=== PATIENT | male | born 1990 | race Caucasian/White ===

== ENCOUNTER 2020-11-12 14:16 | Observation (INO) | payer OTHER ==
[2020-11-12] MEDS ORDERED: ONDANSETRON 4 MG/2 ML VIAL IVP STA (14:43)
[2020-11-12] MEDS ORDERED: MORPHINE SULFATE 4 MG/ML SYRINGE IV STA (14:43)
[2020-11-12] MEDS ORDERED: SODIUM CHLORIDE 0.9% 1,000 ML IV STA (14:43)
[2020-11-12 15:15] LABS: Basophils # (A) 0.1 k/uL (0-0.2); Basophils % (A) 1 %; Eosinophils # (A) 0.2 k/uL (0-0.7); Eosinophils % (A) 2 %; HCT 43.7 % (39.0-53.0); HGB 14.9 gm/dL (13.0-17.5); Lymphocytes # (A) 1.8 k/uL (1.0-4.8); Lymphocytes % (A) 23 %; MCH 28.2 pg (25.0-35.0); MCHC 34.1 g/dL (31.0-37.0); MCV 82.8 fL (80.0-100.0); Mean Platelet Volume 6.8; Monocytes # (A) 0.5 k/uL (0-1.0); Monocytes % (A) 6 %; Neutrophils # (A) 5.1 k/uL (1.3-7.7); Neutrophils % (A) 67 %; Platelet Count 215 k/uL (150-450); RBC 5.28 m/uL (4.30-5.90); RDW 12.9 % (11.5-15.5); WBC 7.6 k/uL (3.8-10.6)
[2020-11-12 15:17] LABS: Appearance,Urine Clear (Clear); Bilirubin,Urine Negative (Negative); Blood,Urine Negative (Negative); Color,Urine Yellow; Glucose,Urine (UA) Negative (Negative); Ketones,Urine Negative (Negative); Leukocyte Esterase,Urine Negative (Negative); Nitrite,Urine Negative (Negative); PH, Urine 5.5 (5.0-8.0); Protein,Urine Negative (Negative); Specific Gravity,Urine 1.028 (1.001-1.035); Urobilinogen,Urine <2.0 mg/dL (<2.0)
[2020-11-12 15:49] LABS: ALT 24 U/L (4-49); AST 24 U/L (17-59); African American GFR (CKD) >90 (>60 ml/min/1.73 sqM); Albumin 4.6 g/dL (3.5-5.0); Alkaline Phosphatase 56 U/L (38-126); Amylase 53 U/L (30-110); Anion Gap 7 mmol/L; Blood Urea Nitrogen 19 mg/dL (9-20); Calcium 9.1 mg/dL (8.4-10.2); Carbon Dioxide 29 mmol/L (22-30); Chloride 103 mmol/L (98-107); Glucose 103 mg/dL (74-99); Lipase 92 U/L (23-300); Non-African American GFR(CKD) 86 (>60 ml/min/1.73 sqM); Potassium 4.3 mmol/L (3.5-5.1); Sodium 139 mmol/L (137-145); Total Bilirubin 0.5 mg/dL (0.2-1.3); Total Protein 7.2 g/dL (6.3-8.2)
--- NOTE | 2020-11-12 15:54 | ED ---
Abdominal Pain HPI - General Chief Complaint: Abdominal Pain Stated Complaint: R side pain Time Seen by Provider: 11/12/20 14:24 Source: patient, RN notes reviewed Mode of arrival: ambulatory Limitations: no limitations - History of Present Illness Initial Comments: Patient is a 30-year-old male that presents to emergency department complaining of right lower quadrant pain. He notes that it started last evening thought that it was an abdominal pain and abdominal cramping or pain and will go away on its own. He noted that it has not been relieved or let up since yesterday. So decided come emergency room to get evaluated. He notes he does still have his appendix. He noted that he is nauseous but has not vomited. He was in no apparent distress or pain while sitting up in bed during the exam interview. He denied any chest pain shortness of breath headache nausea diarrhea constipation fever fatigue chills hematochezia melena - Related Data Allergies Allergy/AdvReac Type Severity Reaction Status Date / Time eye drops Allergy Unknown Uncoded 11/12/20 14:22 Review of Systems ROS Statement: Those systems with pertinent positive or pertinent negative responses have been documented in the HPI. ROS Other: All systems not noted in ROS Statement are negative. Past Medical History Past Medical History: No Reported History History of Any Multi-Drug Resistant Organisms: None Reported Past Surgical History: Tonsillectomy Past Psychological History: Anxiety Smoking Status: Never smoker Past Alcohol Use History: Rare Past Drug Use History: None Reported General Exam Limitations: no limitations General appearance: alert, in no apparent distress Head exam: Present: atraumatic, normocephalic, normal inspection Eye exam: Present: normal appearance, PERRL, EOMI. Absent: scleral icterus, conjunctival injection, periorbital swelling Neck exam: Present: normal inspection Respiratory exam: Present: normal lung sounds bilaterally. Absent: respiratory distress, wheezes, rales, rhonchi, stridor Cardiovascular Exam: Present: regular rate, normal rhythm, normal heart sounds. Absent: systolic murmur, diastolic murmur, rubs, gallop, clicks GI/Abdominal exam: Present: soft, normal bowel sounds. Absent: distended, tenderness, guarding, rebound, rigid Expanded GI/Abdominal exam: Present: Rovsing's sign, tenderness at McBurney's Point Extremities exam: Present: normal inspection, full ROM, normal capillary refill. Absent: tenderness, pedal edema, joint swelling, calf tenderness Neurological exam: Present: alert, oriented X3 Psychiatric exam: Present: normal affect, normal mood Skin exam: Present: warm, dry, intact, normal color. Absent: rash Course Vital Signs 11/12/20 11/12/20 14:19 16:16 Temperature 98.2 F Pulse Rate 60 68 Respiratory 18 17 Rate Blood Pressure 120/69 116/68 O2 Sat by Pulse 98 97 Oximetry Medical Decision Making - Medical Decision Making 30-year-old male complaining of right lower quadrant pain starting last night. Labs, 4 mg morphine, 4 mg Zofran, CT of the abdomen and pelvis, 1 L normal saline ordered. Labs unremarkable. CT shows early appendicitis. Case discussed with Dr. Crane, patient will be admitted inpatient for surgical consult. Kendra Stacy consulted and will accept the admit for Dr. Taylor with surgery on consult. - Lab Data Result diagrams: 11/12/20 15:00 11/12/20 15:00 Lab Results 11/12/20 11/12/20 11/12/20 Range/Units 15:00 15:00 15:00 WBC 7.6 (3.8-10.6) k/uL RBC 5.28 (4.30-5.90) m/uL Hgb 14.9 (13.0-17.5) gm/dL Hct 43.7 (39.0-53.0) % MCV 82.8 (80.0-100.0) fL MCH 28.2 (25.0-35.0) pg MCHC 34.1 (31.0-37.0) g/dL RDW 12.9 (11.5-15.5) % Plt Count 215 (150-450) k/uL MPV 6.8 Neutrophils % 67 % Lymphocytes % 23 % Monocytes % 6 % Eosinophils % 2 % Basophils % 1 % Neutrophils # 5.1 (1.3-7.7) k/uL Lymphocytes # 1.8 (1.0-4.8) k/uL Monocytes # 0.5 (0-1.0) k/uL Eosinophils # 0.2 (0-0.7) k/uL Basophils # 0.1 (0-0.2) k/uL Sodium 139 (137-145) mmol/L Potassium 4.3 (3.5-5.1) mmol/L Chloride 103 (98-107) mmol/L Carbon Dioxide 29 (22-30) mmol/L Anion Gap 7 mmol/L BUN 19 (9-20) mg/dL Creatinine 1.14 (0.66-1.25) mg/dL Est GFR (CKD-EPI)AfAm >90 (>60 ml/min/1.73 sqM) Est GFR (CKD-EPI)NonAf 86 (>60 ml/min/1.73 sqM) Glucose 103 H (74-99) mg/dL Calcium 9.1 (8.4-10.2) mg/dL Total Bilirubin 0.5 (0.2-1.3) mg/dL AST 24 (17-59) U/L ALT 24 (4-49) U/L Alkaline Phosphatase 56 (38-126) U/L Total Protein 7.2 (6.3-8.2) g/dL Albumin 4.6 (3.5-5.0) g/dL Amylase 53 (30-110) U/L Lipase 92 (23-300) U/L Urine Color Yellow Urine Appearance Clear (Clear) Urine pH 5.5 (5.0-8.0) Ur Specific [place] 1.028 (1.001-1.035) Urine Protein Negative (Negative) Urine Glucose (UA) Negative (Negative) Urine Ketones Negative (Negative) Urine Blood Negative (Negative) Urine Nitrite Negative (Negative) Urine Bilirubin Negative (Negative) Urine Urobilinogen <2.0 (<2.0) mg/dL Ur Leukocyte Esterase Negative (Negative) - Radiology Data Radiology results: image reviewed CT of the abdomen and pelvis. Borderline prominence of the appendix measuring up to 6 mm. No significant inflammatory changes or fluid collection. Findings are clinical for early appendicitis. Disposition Clinical Impression: Appendicitis Disposition: ADMITTED IP TO THIS [facility] Condition: Stable Is patient prescribed a controlled substance at d/c from ED?: No Referrals: None,Stated [Primary Care Provider] - 1-2 days Time of Disposition: 17:26
--- NOTE | 2020-11-12 16:50 | CT ---
EXAMINATION TYPE: CT abdomen pelvis w con DATE OF EXAM: 11/12/2020 COMPARISON: None available. HISTORY: RLQ pain CT DLP: 1679.1 mGycm Automated exposure control for dose reduction was used. TECHNIQUE: Helical acquisition of images was performed from the lung bases through the pelvis. CONTRAST: Performed without Oral Contrast and with IV Contrast, patient injected with 100 mL of Isovue 300. FINDINGS: LUNG BASES: No significant abnormality is appreciated. LIVER/GB: No acute abnormality is appreciated. Hepatic steatosis. PANCREAS: No significant abnormality is seen. SPLEEN: No significant abnormality is seen. ADRENALS: No significant abnormality is seen. KIDNEYS: No significant abnormality is seen. FREE AIR: No free air is visualized. RETROPERITONEAL ADENOPATHY: None visualized REPRODUCTIVE ORGANS: No significant abnormality is seen URINARY BLADDER: No significant abnormality is seen. PELVIC ADENOPATHY: None visualized. OSSEOUS STRUCTURES: No significant abnormality is seen. BOWEL: Appendix measures up to 6 mm. No bowel obstruction, free air or fluid. OTHER: None IMPRESSION: BORDERLINE PROMINENCE OF THE APPENDIX MEASURING UP TO 6 MM. NO SIGNIFICANT INFLAMMATORY CHANGES OR FL UID COLLECTION. FINDINGS ARE EQUIVOCAL FOR EARLY APPENDICITIS. Incidental findings as above.
[2020-11-12] MEDS ORDERED: PIPERACILLIN-TAZOBACTAM 3.375 GM in SODIUM CHLORIDE 0.9% 100 ML IVPB STA (17:14)
[2020-11-12] MEDS ORDERED: ONDANSETRON 4 MG/2 ML VIAL IVP PRN (17:23)
[2020-11-12] MEDS ORDERED: MORPHINE SULFATE 4 MG/ML SYRINGE IV PRN (17:23)
[2020-11-12] MEDS ORDERED: NALOXONE 0.4 MG/ML 1 ML VIAL IV PRN (17:23)
[2020-11-12] MEDS: SODIUM CHLORIDE 0.9% 1,000 ML IV SCH (17:51)
[2020-11-12] MEDS ORDERED: TEMAZEPAM 15 MG CAP PO PRN (20:09)
[2020-11-12] MEDS ORDERED: ALPRAZolam 0.25 MG TAB PO PRN (20:09)
[2020-11-12] MEDS: ACETAMINOPHEN TAB 325 MG TAB PO SCH ×2 (20:26→21:33)
[2020-11-12] MEDS: HEPARIN SODIUM,PORCINE/PF 5,000 UNIT/0.5 ML SYRINGE SQ SCH (21:33)
[2020-11-12] MEDS: PANTOPRAZOLE 40 MG/10 ML VIAL IVP SCH (21:33)
--- NOTE | 2020-11-12 22:16 | HP ---
HISTORY AND PHYSICAL DATE OF SERVICE: 11/12/2020 CHIEF COMPLAINT: Abdominal pain. HISTORY OF PRESENT ILLNESS: This 30-year-old gentleman with a past medical history of no significant medical issues except tonsillectomy and anxiety, being followed by no primary physician in the outpatient setting is complaining of abdominal pain which is felt mostly on the right side of the abdomen, lower part for the past several hours and because of increasing pain, patient also had some cramping, the patient came to [facility] and was admitted for further evaluation and treatment. There is no history of any fevers, rigors. No headache, loss of consciousness, seizures. White count is normal. The CT scan of the abdomen was done in the ER which showed borderline prominence of the appendix measuring up to 6 mm and findings ( ) for early appendicitis. Patient admitted for further evaluation and treatment. Surgery was consulted. PAST MEDICAL HISTORY: History of tonsillectomy, history of anxiety. MEDICATIONS ARE: Zoloft 150 mg daily. ALLERGIES: Eye drops. FAMILY HISTORY: No history of heart disease or strokes. SOCIAL HISTORY: No history of smoking, no alcohol intake. REVIEW OF SYSTEMS: ENT No history of diminished hearing or vision. CARDIOVASCULAR No angina or palpitations. RESPIRATORY No cough, no hemoptysis. GI As mentioned earlier. No dysuria or hematuria. NERVOUS No numbness or weakness. ALLERGY/IMMUNOLOGY No asthma or hayfever. MUSCULOSKELETAL As mentioned earlier. HEMATOLOGY/ONCOLOGY Negative. ENDOCRINE No history of diabetes or hypothyroidism. CONSTITUTIONAL As mentioned earlier. DERMATOLOGY Negative. RHEUMATOLOGY Negative, PSYCHIATRY As mentioned earlier. PHYSICAL EXAMINATION: Alert and oriented x3. Pulse 58, blood pressure 116/67, respiration 18, temperature 97.7, pulse ox 94% on room air. HEENT: Conjunctivae normal. Oral mucosa moist. NECK: No jugular venous distention. No lymph node enlargement. CARDIOVASCULAR: S1, S2, muffled. No S3, no S4, RESPIRATORY: Diminished breath sounds at the bases. Bilateral scattered rhonchi and crackles. ABDOMEN: Soft. Mild diffuse tenderness in the right lower quadrant. No guarding, no rigidity. No mass palpable. No ascites. LEGS: No edema, no swelling. NERVOUS SYSTEM: Higher functions mentioned earlier. Moves all four limbs. No focal motor or sensory deficits. LYMPHATICS: No lymph node in neck or axilla. SKIN: No rash. JOINTS: No active deforming arthropathy. LABS: Noted. Glucose 103. ASSESSMENT: 1. Right lower quadrant abdominal pain, possible acute appendicitis. 2. Increased random blood sugar. 3. History of tonsillectomy. 4. History of anxiety. 5. Bradycardia. 6. FULL CODE. RECOMMENDATIONS: In this 30-year-old gentleman who presented with multiple medical issues, at this time I recommend continue the current management, symptomatic treatment. Will obtain a surgical evaluation. Broad-spectrum IV antibiotics. Otherwise, closely monitor. The COVID-19 is negative. Also recommend the patient follow up with primary physician closely after discharge. DVT prophylaxis. Proton pump inhibitors. Discussed with the patient's family who understands. MMODL / IJN: [id number] /
[2020-11-13] MEDS: ACETAMINOPHEN TAB 325 MG TAB PO SCH ×5 (01:52→17:51)
[2020-11-13] MEDS: PIPERACILLIN-TAZOBACTAM 3.375 GM in SODIUM CHLORIDE 0.9% 100 ML IVPB SCH ×3 (01:52→17:33)
[2020-11-13] MEDS: SODIUM CHLORIDE 0.9% 1,000 ML IV SCH (01:52)
[2020-11-13] MEDS: PANTOPRAZOLE 40 MG/10 ML VIAL IVP SCH (07:46)
[2020-11-13] MEDS: HEPARIN SODIUM,PORCINE/PF 5,000 UNIT/0.5 ML SYRINGE SQ SCH ×2 (07:46→15:38)
[2020-11-13] MEDS ORDERED: SERTRALINE 100 MG TAB PO SCH (09:00)
[2020-11-13 09:08] LABS: Basophils % (A) 1 %; Eosinophils # (A) 0.1 k/uL (0-0.7); Eosinophils % (A) 1 %; HCT 41.8 % (39.0-53.0); HGB 14.4 gm/dL (13.0-17.5); Lymphocytes # (A) 1.6 k/uL (1.0-4.8); Lymphocytes % (A) 27 %; MCH 28.9 pg (25.0-35.0); MCHC 34.5 g/dL (31.0-37.0); MCV 83.5 fL (80.0-100.0); Monocytes # (A) 0.4 k/uL (0-1.0); Monocytes % (A) 6 %; Neutrophils # (A) 3.8 k/uL (1.3-7.7); Neutrophils % (A) 64 %; Platelet Count 220 k/uL (150-450); WBC 5.9 k/uL (3.8-10.6)
--- NOTE | 2020-11-13 12:21 | P.GSCN ---
History of Present Illness Consult date: 11/13/20 History of present illness: CHIEF COMPLAINT: Right lower quadrant abdominal pain for 2 days HISTORY OF PRESENT ILLNESS: The patient is a previously healthy 30-year-old male who presents with 2 day history of right lower quadrant abdominal pain that is crampy dull ache in nature. No reports of prior abdominal pain. He states the intensity of the pain is moderate and not improved with antibiotics or pain medications. He presented with CT abdomen and pelvis consistent with dilated appendix suspicious for appendicitis hence admission. PAST MEDICAL HISTORY: See list and reviewed PAST SURGICAL HISTORY: See list and reviewed CURRENT MEDICATIONS: See list and reviewed ALLERGIES: See list and reviewed SOCIAL HISTORY: See list and reviewed FAMILY HISTORY: See list and reviewed REVIEW OF ORGAN SYSTEMS: CONSTITUTIONAL: Present fever, no chills. Denies recent weight loss. HEENT: Denies any trouble with vision, hearing or nosebleeds. No difficulty swallowing. LYMPHATIC: The patient denies any lumps and bumps around the neck. ENDOCRINE: Denies any thyroid disorders. Denies any blood sugar glucose intolerance. RESPIRATORY: Denies shortness of breath including chronic cough. CARDIOVASCULAR: Denies history of chest pain with exertion. GASTROINTESTINAL: Denies regurgitation of bile at night as well as intermittent nausea. No blood in stools. GENITOURINARY: Denies any blood in urine or increased urinary frequency. MUSCULOSKELETAL: Denies current joint arthritis. NEUROLOGIC: Denies any numbness or tingling along the distal extremities. No seizure disorders or headaches. PSYCHIATRIC: Denies any depression or suicidal ideation. Has anxiety. HEMATOLOGIC: Denies any abnormal bleeding or bruising. PHYSICAL EXAMINATION: GENERAL: Well-developed male in no acute distress. Pleasant. HEENT: No sclera icterus. Extraocular movements grossly intact. Moist buccal mucosa. Head is atraumatic, normocephalic. Hears conversational speech. No nasal drainage. NECK: Supple without lymphadenopathy. No JV distention. CHEST: Non-labored respirations and equal bilateral excursions. CARDIOVASCULAR: Regular rate and rhythm. Palpable 2+ radial pulses. ABDOMEN: Soft, tender at the right lower quadrant without guarding. MUSCULOSKELETAL: No clubbing, cyanosis or edema. NEUROLOGIC: No focal or lateralizing signs. PSYCH: Appropriate affect. Alert and oriented to person, place and time. SKIN: Well perfused. Good skin turgor. LABS: Reviewed. White blood cell normal under 8000. STUDIES: CT of the abdomen and pelvis reviewed with appendix identified. Minimal inflammatory changes. This is my independent interpretation. RADIOLOGY: CT of the abdomen pelvis report consistent with early appendicitis. ASSESSMENT: 1. Appendicitis PLAN: 1. I have discussed benefits and risks of appendectomy. 2. Bilateral SCDs. 3. Continue IV antibiotics Thank you very much for allowing me to participate in the care of your patient. Past Medical History Past Medical History: No Reported History History of Any Multi-Drug Resistant Organisms: None Reported Past Surgical History: Tonsillectomy Past Anesthesia/Blood Transfusion Reactions: No Reported Reaction Past Psychological History: Anxiety Smoking Status: Never smoker Past Alcohol Use History: Rare Past Drug Use History: None Reported Medications and Allergies Home Medications Medication Instructions Recorded Confirmed Type Sertraline HCl [Zoloft] 150 mg PO DAILY 11/12/20 11/12/20 History Allergies Allergy/AdvReac Type Severity Reaction Status Date / Time eye drops Allergy Unknown Uncoded 11/12/20 17:37 Surgical - Exam Vital Signs Temp Pulse Resp BP Pulse Ox 98.2 F 60 18 120/69 98 11/12/20 14:19 11/12/20 14:19 11/12/20 14:19 11/12/20 14:19 11/12/20 14:19 Results - Labs 11/13/20 08:34 11/12/20 15:00 Abnormal Lab Results - Last 24 Hours (Table) 11/12/20 Range/Units 15:00 Glucose 103 H (74-99) mg/dL Diabetes panel 11/12/20 Range/Units 15:00 Sodium 139 (137-145) mmol/L Potassium 4.3 (3.5-5.1) mmol/L Chloride 103 (98-107) mmol/L Carbon Dioxide 29 (22-30) mmol/L BUN 19 (9-20) mg/dL Creatinine 1.14 (0.66-1.25) mg/dL Glucose 103 H (74-99) mg/dL Calcium 9.1 (8.4-10.2) mg/dL AST 24 (17-59) U/L ALT 24 (4-49) U/L Alkaline Phosphatase 56 (38-126) U/L Total Protein 7.2 (6.3-8.2) g/dL Albumin 4.6 (3.5-5.0) g/dL Calcium panel 11/12/20 Range/Units 15:00 Calcium 9.1 (8.4-10.2) mg/dL Albumin 4.6 (3.5-5.0) g/dL Pituitary panel 11/12/20 Range/Units 15:00 Sodium 139 (137-145) mmol/L Potassium 4.3 (3.5-5.1) mmol/L Chloride 103 (98-107) mmol/L Carbon Dioxide 29 (22-30) mmol/L BUN 19 (9-20) mg/dL Creatinine 1.14 (0.66-1.25) mg/dL Glucose 103 H (74-99) mg/dL Calcium 9.1 (8.4-10.2) mg/dL Adrenal panel 11/12/20 Range/Units 15:00 Sodium 139 (137-145) mmol/L Potassium 4.3 (3.5-5.1) mmol/L Chloride 103 (98-107) mmol/L Carbon Dioxide 29 (22-30) mmol/L BUN 19 (9-20) mg/dL Creatinine 1.14 (0.66-1.25) mg/dL Glucose 103 H (74-99) mg/dL Calcium 9.1 (8.4-10.2) mg/dL Total Bilirubin 0.5 (0.2-1.3) mg/dL AST 24 (17-59) U/L ALT 24 (4-49) U/L Alkaline Phosphatase 56 (38-126) U/L Total Protein 7.2 (6.3-8.2) g/dL Albumin 4.6 (3.5-5.0) g/dL Assessment and Plan (1) Obesity (BMI 30.0-34.9) Current Visit: Yes Status: Acute Code(s): E66.9 - OBESITY, UNSPECIFIED SNOMED Code(s): 393632505515244 (2) Obesity due to excess calories Current Visit: Yes Status: Acute Code(s): E66.09 - OTHER OBESITY DUE TO EXCESS CALORIES SNOMED Code(s): 858708150
[2020-11-13] MEDS ORDERED: TAMSULOSIN 0.4 MG CAP.ER.24H PO SCH (13:00)
[2020-11-13] MEDS ORDERED: SUCCINYLCHOLINE CHLORIDE 100 MG/5 ML SYR IV ONE (16:03)
[2020-11-13] MEDS ORDERED: fentaNYL (PF) 50 MCG/ML 2 ML AMP ONE (16:03)
[2020-11-13] MEDS ORDERED: DEXAMETHASONE SOD PHOSPHATE 4 MG/ML 1 ML VIAL ONE (16:03)
[2020-11-13] MEDS ORDERED: ceFAZolin 1,000 MG VIAL ONE (16:03)
[2020-11-13] MEDS ORDERED: LIDOCAINE 1% INJ 10MG/ML (20 ML MDV) ONE (16:03)
[2020-11-13] MEDS ORDERED: GLYCOPYRROLATE 0.2 MG/ML 2 ML VIAL ONE (16:03)
[2020-11-13] MEDS ORDERED: SODIUM CHLORIDE 0.9% 100 ML BAG ONE (16:03)
[2020-11-13] MEDS ORDERED: ONDANSETRON 4 MG/2 ML VIAL ONE (16:03)
[2020-11-13] MEDS ORDERED: KETOROLAC 15 MG/ML 1 ML VIAL ONE (16:03)
[2020-11-13] MEDS ORDERED: NEOSTIGMINE 1 MG/ML 10 ML VIAL ONE (16:03)
[2020-11-13] MEDS ORDERED: MIDAZOLAM 2 MG/2 ML VIAL ONE (16:03)
[2020-11-13] MEDS ORDERED: ROCURONIUM 10 MG/ML (5 ML VIAL) IV ONE (16:03)
[2020-11-13] MEDS ORDERED: PROPOFOL 10 MG/ML 20 ML VIAL IV ONE (16:03)
[2020-11-13] MEDS ORDERED: IV FLUID CONTINUATION 1,000 ML IV ONE ×2 (16:13)
[2020-11-13] MEDS ORDERED: BUPIVACAIN-EPI 0.5%-1:200,000 30 ML VIAL SQ ONE (16:38)
--- NOTE | 2020-11-13 17:11 | P.OP ---
Date of Procedure: 11/13/20 Description of Procedure: SURGEON: VIDYA CRUZ MD COMIC WRITER: None. PREOPERATIVE DIAGNOSES: 1. Right lower quadrant abdominal pain. 2. Acute appendicitis. POSTOPERATIVE DIAGNOSES: 1. Right lower quadrant abdominal pain. 2. Acute appendicitis with periappendicitis without rupture PROCEDURES PERFORMED: 1. Diagnostic laparoscopy. 2. Laparoscopic appendectomy. ANESTHESIA: General with 30 mL local ESTIMATED BLOOD LOSS: 5 mL. SPECIMENS REMOVED: Appendix COMPLICATIONS: None. OPERATIVE FINDINGS: 1. Acute appendicitis with dilation of the tip of the appendix and periappendicitis INDICATIONS: The patient is a 30-year-old male who presents with 2 day history of right lower quadrant abdominal pain. He reported nausea including moderate severe lower abdominal pain. CT of the abdomen and pelvis was obtained demonstrating findings consistent with acute appendicitis. Benefits and risks, including possibility of open technique were described at length. Informed consent was obtained. DESCRIPTION OR PROCEDURE: Patient was brought to the operating room, laid in supine position. After general induction, the abdomen was prepped and draped in standard sterile fashion. Prior to incision, a timeout protocol was confirmed with surgical team regarding patient's name including procedure to be performed. Preoperative medication of Antibiotics were given intraoperatively. Additionally, bilateral SCDs were placed. A 0 degree 5 mm laparoscopic trocar entry was performed and entered into the peritoneal cavity. The abdomen was insufflated to 15 mmHg of pressure, which she tolerated well. Diagnostic laparoscopy demonstrated no injury to bowel, viscera or mesentery. A 5 mm port was placed along the left lower abdomen. A separate 12 mm port was placed at the left lateral abdomen all under direct visualization. The patient was placed in Trendelenburg position with the right side up. A systematic view within the abdominal cavity was started with the small bowel which was unremarkable. The base of the cecum was without inflammation. The appendix tip was dilated and with periappendicitis consistent with acute appendicitis. A 45 mm Endo LEN powered Ethicon echelon stapler was fired across using a redmond vascular load. The staple line was completely hemostatic. The specimen was removed from the abdominal cavity with a Jaskaran through the 12 mm trocar. All instruments and pneumoperitoneum were evacuated from the abdominal cavity. Local anesthetic was infiltrated in all wounds for postop analgesia. Exofin glue was applied to the skin after reapproximating the incisions with 4-0 Monocryl as described. At the end of the procedure, needle, sponge, and instrument count was verified correct by surgical scrub technologist. The patient had tolerated the procedure well, was taken to the postanesthesia care unit in stable condition. Intraoperative abdominal films were described and discussed with her family who were overall pleased with her level of care. Plan - Discharge Summary Discharge Rx Participant: No New Discharge Prescriptions: New Simethicone [Gas-X] 125 mg PO AC-TID PRN #20 capsule PRN Reason: Pain Acetaminophen Tab [Tylenol Tab] 1,000 mg PO Q6HR PRN #30 tablet PRN Reason: Pain Ibuprofen [Motrin] 600 mg PO Q8HR PRN #30 tab PRN Reason: Pain Continue Sertraline HCl [Zoloft] 150 mg PO DAILY Discharge Medication List Sertraline HCl [Zoloft] 150 mg PO DAILY 11/12/20 [History] Acetaminophen Tab [Tylenol Tab] 1,000 mg PO Q6HR PRN #30 tablet 11/13/20 [Rx] Ibuprofen [Motrin] 600 mg PO Q8HR PRN #30 tab 11/13/20 [Rx] Simethicone [Gas-X] 125 mg PO AC-TID PRN #20 capsule 11/13/20 [Rx] Follow up Appointment(s)/Referral(s): Vidya Cruz MD [STAFF PHYSICIAN] - 11/15/20 None,Stated [Primary Care Provider] - 1-2 days Patient Instructions/Handouts: Laparoscopic Appendectomy (DC) Activity/Diet/Wound Care/Special Instructions: Use antibacterial soap. No lifting over 10 pounds 2 weeks, November 27September shower. No bathtub soaks for 2 weeks, November 27 Use ice along incisions for today to prevent swelling. Take tylenol, aleve/ibuprofen, simethicone scheduled for 3 days for best pain relief Discharge Disposition: HOME SELF-CARE
[2020-11-13 17:12] VITALS: TEMP 97.8
[2020-11-13 17:54] VITALS: RESP 16
--- NOTE | 2020-11-13 19:28 | PN ---
PROGRESS NOTE DATE OF SERVICE: 11/13/2020 This 30-year-old gentleman admitted with abdominal pain and possible appendicitis, underwent laparoscopic appendectomy by Dr. Cruz. No chest pain. No palpitations. No fever. PHYSICAL EXAMINATION: Alert and oriented x3. Pulse 81, blood pressure 107/60, respirations 16, temperature 97.8, pulse ox 94% on room air. HEENT: Conjunctivae normal. Oral mucosa moist. NECK: No jugular venous distention. No lymph node enlargement. CARDIOVASCULAR: S1, S2, muffled. No S3, no S4, RESPIRATORY: Diminished breath sounds at the bases. ABDOMEN: Soft. Mild tenderness present. LEGS: No edema, no swelling. NERVOUS SYSTEM: No focal deficits. LABS: CBC noted. ASSESSMENT: 1. Right lower quadrant abdominal pain with acute appendicitis status post laparoscopic appendectomy. 2. Increased random blood sugar. 3. History of tonsillectomy. 4. History of anxiety. 5. Bradycardia. 6. FULL CODE. RECOMMENDATIONS: Recommend to continue current medications, symptomatic treatment. Recommendations per Surgery and closely follow with primary physician in the outpatient setting. Further recommendations to follow. MMODL / IJN: [id number] /
[2020-11-13 19:38] VITALS: BP 92/61; PULSE 82
[2020-11-14] MEDS ORDERED: metroNIDAZOLE-NS PMX 500 MG in SALINE 100 100ML.BAG IVPB PRN (07:00)
--- NOTE | 2020-11-15 19:52 | DS ---
DISCHARGE SUMMARY FINAL DIAGNOSES: 1. Right lower quadrant abdominal pain with acute appendicitis status post laparoscopic appendectomy. 2. Increased random blood sugar. 3. History of tonsillectomy. 4. History of anxiety. 5. Bradycardia. 6. FULL CODE. DISCHARGE DISPOSITION: The patient will be discharged in stable condition with guarded prognosis. Discharge cleared by surgery. HISTORY OF PRESENT ILLNESS: This 30 year-old gentleman with a past medical history of multiple medical problems admitted with acute appendicitis. Dr. Cruz performed laparoscopic appendectomy. The patient improved significantly. The patient for discharged in stable condition with guarded prognosis. DISCHARGE ADVICE AND MEDICATIONS: 1. Diet is cardiac diet. 2. Activity limited until followup. 3. Follow up with primary physician in 1-2 days. 4. Follow up with Dr. Cruz as recommended. DISCHARGE MEDICATIONS: 1. Zoloft 150 mg p.o. daily. 2. Gas-X p.r.n. 3. Motrin p.r.n. 4. Tylenol p.r.n. MMBINTA / ANNN: [id number] /
== END 2020-11-13 20:40 | disposition home or self-care (01) ==
LOC: EC 14:16 → 4SSUR 18:00
PROVIDERS: ADMIT Hospitalist; ATTEND Hospitalist
DX: K35.80 Unspecified acute appendicitis (principal); F41.9 Anxiety disorder, unspecified; R00.1 Bradycardia, unspecified; R73.9 Hyperglycemia, unspecified; Z20.822 Contact with and (suspected) exposure to COVID-19; E66.09 Other obesity due to excess calories; Z68.33 Body mass index [BMI] 33.0-33.9, adult; Z98.890 Other specified postprocedural states; Z79.899 Other long term (current) drug therapy; Z88.8 Allergy status to other drugs, medicaments and biological substances
CPT/HCPCS: 44970; 96376; 96361 ×2; 96366 ×2; 96372 ×2; 96375 ×2; 96365; 99285; 36415; 88304; 80053; 82150; 83690; 85025 ×2; 81003; 87635; 74177; G0378 ×2; J2543 ×2; J2250; J2270; J1100; J2710; J2405 ×2; J0690; J2001; J3010; J1885; J0330; J2704; C9113 ×2; Q9967; J1644 ×2

== ENCOUNTER 2023-07-16 14:39 | Emergency (ER) | payer BC, OTHER ==
--- NOTE | 2023-07-16 15:03 | ED ---
Fall HPI - General Chief Complaint: Fall Stated Complaint: Fall-Head/Neck Pain Time Seen by Provider: 07/16/23 14:47 Source: patient, family, RN notes reviewed Mode of arrival: ambulatory Limitations: no limitations - History of Present Illness Initial Comments: 32-year-old male presents emergency department with chief complaint of left- sided head, neck pain. Patient states that his daughter put a toy he had steps and states that he slipped on it causing him to fall he states he whipped his head backwards striking the edge of the step. He states he has had pain ever since this injury. Patient states pain is starts at his neck, just behind his ear and radiates up towards his left eye. Denies any visual disturbance. He states he has constant pain but he has extreme pain with certain movements, intense strain - Related Data Home Medications Medication Instructions Recorded Confirmed Sertraline HCl [Zoloft] 150 mg PO DAILY 11/12/20 11/12/20 Previous Rx's Medication Instructions Recorded Acetaminophen Tab [Tylenol Tab] 1,000 mg PO Q6HR PRN #30 tablet 11/13/20 Ibuprofen [Motrin] 600 mg PO Q8HR PRN #30 tab 11/13/20 Simethicone [Gas-X] 125 mg PO AC-TID PRN #20 capsule 11/13/20 Cyclobenzaprine [Flexeril] 10 mg PO TID PRN #15 tab 07/16/23 predniSONE 50 mg PO DAILY #5 tab 07/16/23 Allergies Allergy/AdvReac Type Severity Reaction Status Date / Time eye drops Allergy Unknown Uncoded 11/12/20 17:37 Review of Systems ROS Statement: Those systems with pertinent positive or pertinent negative responses have been documented in the HPI. ROS Other: All systems not noted in ROS Statement are negative. Past Medical History Past Medical History: No Reported History History of Any Multi-Drug Resistant Organisms: None Reported Past Surgical History: Adenoidectomy, Appendectomy, Tonsillectomy Past Anesthesia/Blood Transfusion Reactions: No Reported Reaction Past Psychological History: Anxiety Smoking Status: Never smoker Past Alcohol Use History: Rare Past Drug Use History: None Reported General Exam Limitations: no limitations General appearance: alert, in no apparent distress Head exam: Present: atraumatic, normocephalic, normal inspection Eye exam: Present: normal appearance, PERRL, EOMI. Absent: scleral icterus, conjunctival injection, periorbital swelling ENT exam: Present: normal exam, normal oropharynx, mucous membranes moist Neck exam: Present: normal inspection, full ROM. Absent: tenderness, meningismus, lymphadenopathy Respiratory exam: Present: normal lung sounds bilaterally. Absent: respiratory distress, wheezes, rales, rhonchi, stridor Cardiovascular Exam: Present: regular rate, normal rhythm, normal heart sounds. Absent: systolic murmur, diastolic murmur, rubs, gallop, clicks Extremities exam: Present: normal inspection, full ROM, normal capillary refill. Absent: tenderness, pedal edema, joint swelling, calf tenderness Neurological exam: Present: alert, oriented X3, CN II-XII intact, reflexes normal. Absent: motor sensory deficit Skin exam: Present: warm, dry, intact, normal color. Absent: rash Course Vital Signs 07/16/23 07/16/23 14:42 15:58 Temperature 98 F 98.1 F Pulse Rate 63 69 Respiratory 16 12 Rate Blood Pressure 130/77 113/75 O2 Sat by Pulse 98 100 Oximetry Medical Decision Making - Medical Decision Making Was pt. sent in by a medical professional or institution (, PA, PHYSICIAN SUPPORT COORDINATOR, urgent care, hospital, or longterm...) When possible be specific @ -No Did you speak to anyone other than the patient for history (EMS, parent, family, police, friend...)? What history was obtained from this source @ -No Did you review nursing and triage notes (agree or disagree)? Why? @ -I reviewed and agree with nursing and triage notes Were old charts reviewed (outside hosp., previous admission, EMS record, old EKG, old radiological studies, urgent care reports/EKG's, longterm records)? Report findings @ -No old charts were reviewed Differential Diagnosis (chest pain, altered mental status, abdominal pain women, abdominal pain men, vaginal bleeding, weakness, fever, dyspnea, syncope, headache, dizziness, GI bleed, back pain, seizure, CVA, palpatations, mental health, musculoskeletal)? @ -[Intracranial hemorrhage, skull fracture, concussion, closed head injury EKG interpreted by me (3pts min.). @ -None X-rays interpreted by me (1pt min.). @ -None done CT interpreted by me (1pt min.). @ -C T brain showing no acute intracranial hemorrhage, mass effect or skull fracture CT cervical spine showing straightening of normal cervical curvature U/S interpreted by me (1pt. min.). @ -None done What testing was considered but not performed or refused? (CT, X-rays, U/S, labs)? Why? @ -None What meds were considered but not given or refused? Why? @ -None Did you discuss the management of the patient with other professionals (professionals i.e. Dr., PA, PHYSICIAN SUPPORT COORDINATOR, lab, RT, psych nurse, social media analyst, content development specialist, teacher, principal gifts officer, director case management)? Give summary @ -No Was smoking cessation discussed for >3mins.? @ -No Was critical care preformed (if so, how long)? @ -No Were there social determinants of health that impacted care today? How? (Homelessness, low income, unemployed, alcoholism, drug addiction, transportation, low edu. Level, literacy, decrease access to med. care, halfway, rehab)? @ -No Was there de-escalation of care discussed even if they declined (Discuss DNR or withdrawal of care, Hospice)? DNR status @ -No What co-morbidities impacted this encounter? (DM, HTN, Smoking, COPD, CAD, Cancer, CVA, ARF, Chemo, Hep., AIDS, mental health diagnosis, sleep apnea, mor bid obesity)? @ -None Was patient admitted / discharged? Hospital course, mention meds given and route, prescriptions, significant lab abnormalities, going to OR and other pertinent info. @ -Charge patient presented after head injury, persistent headache, severe pain x [address] was unremarkable other than spasms of neck may be causing symptoms. Patient has some mild concussion symptoms will be discharged in stable condition. Undiagnosed new problem with uncertain prognosis? @ -No Drug Therapy requiring intensive monitoring for toxicity (Heparin, Nitro, Insulin, Cardizem)? @ -No Were any procedures done? @ -No Diagnosis/symptom? @ -Close head injury, cervical strain Acute, or Chronic, or Acute on Chronic? @ -Acute Uncomplicated (without systemic symptoms) or Complicated (systemic symptoms)? @ -Uncomplicated Side effects of treatment? @ -No Exacerbation, Progression, or Severe Exacerbation? @ -No Poses a threat to life or bodily function? How? (Chest pain, [place], [place], pneumonia, PE, COPD, DKA, ARF, appy, cholecystitis, CVA, Diverticulitis, Homicidal, Suicidal, threat to staff... and all critical care pts) @ -No Disposition Clinical Impression: Fall, Closed head injury, Cervical strain Disposition: HOME SELF-CARE Condition: Stable Instructions (If sedation given, give patient instructions): Head Injury (ED) Additional Instructions: Please return to the Emergency Department if symptoms worsen or any other concerns. Prescriptions: Cyclobenzaprine [Flexeril] 10 mg PO TID PRN #15 tab PRN Reason: Muscle Spasm predniSONE 50 mg PO DAILY #5 tab Is patient prescribed a controlled substance at d/c from ED?: No Referrals: Dmitry Jackson MD [Primary Care Provider] - 1-2 days Time of Disposition: 15:48
--- NOTE | 2023-07-16 15:38 | CT ---
EXAMINATION TYPE: CT brain cspine wo con CT DLP: 1578.4 mGycm, Automated exposure control for dose reduction was used. DATE OF EXAM: 07/16/2023 3:27 PM COMPARISON: None. CLINICAL INDICATION:Male, 32 years old with history of trauma, left sided pain; Fall down stairs x1wk ago. Left side neck/head pain. TECHNIQUE: Brain: Multiple axial CT images of the brain were obtained without IV contrast. Cspine: Axial CT images from the skull base to the inferior aspect of T2 we obtained without intraven ous contrast. Coronal and sagittal reformatted images were also reviewed. FINDINGS: Brain: Extra-axial spaces: No abnormal extra-axial fluid collections. Ventricular system: Within normal limits. Cerebral parenchyma: No increased attenuation to suggest acute intraparenchymal hemorrhage. The gra y-white matter interface appears maintained. No significant atrophy. White matter unremarkable by C T. Cerebellum: No acute abnormality. Mass effect: No evidence of mass effect or midline shift. Intracranial vasculature: Unremarkable Soft tissues: Normal. Visualized orbits: Orbital contents appear grossly intact. Calvarium/osseous structures: No evidence of calvarial fracture. Paranasal sinuses and mastoid air cells: Scattered paranasal sinus mucosal thickening, greatest in th e left maxillary sinus. Mild nasal septal deviation to the right and its midportion with small osseou s spur. Mastoid air cells appear normally aerated. MRI is more sensitive for detecting acute processes such as infarct, and may be considered if clinica lly warranted. Cervical spine: Fracture: None seen. Osseous structures, spinal canal/neural foramina: Osseous structures appear unremarkable. No signific ant bony canal or neural foraminal stenoses. Vertebral alignment: No traumatic malalignment. Straightening mild reversal of the normal cervical lo rdosis, can be seen with degenerative changes, pain, positioning, muscular spasm. Neck soft tissues: No acute finding.. Other: Lung apices show no acute infiltrate or pneumothorax. IMPRESSION: CT head: 1. No acute intracranial CT abnormality. 2. Paranasal sinus mucosal thickening. CT cervical spine: 1. No evidence of acute cervical spine fracture or traumatic malalignment. 2. Straightening and mild reversal of the normal cervical lordosis, can be seen with degenerative nicol nges, pain, positioning, muscular spasm.
[2023-07-16 16:16] VITALS: BP 113/75; PULSE 69; RESP 12; TEMP 98.1
== END 2023-07-16 16:01 | disposition home or self-care (01) ==
LOC: EC 14:39
DX: S16.1XXA Strain of muscle, fascia and tendon at neck level, initial encounter (principal); S09.90XA Unspecified injury of head, initial encounter; F41.9 Anxiety disorder, unspecified; Z79.899 Other long term (current) drug therapy; W01.0XXA Fall on same level from slipping, tripping and stumbling without subsequent striking against object, initial encounter
CPT/HCPCS: 70450; 72125; 99283